=== PATIENT | female | born 1940 | race Caucasian/White ===

== ENCOUNTER 2016-10-01 17:08 | Inpatient (IN) | payer MEDICARE, OTHER ==
[2016-10-01 17:32] VITALS: BP 137/64; PULSE 80; RESP 16; TEMP 98.4; O2SAT 97
[2016-10-01 19:43] LABS: BACTERIA, URINE RARE /hpf; BLOOD, URINE TRACE (NEG); GLUCOSE,URINE 300 mg/dL (NEG); HYALINE CAST, URINE 3 /lpf (RARE); KETONE, URINE NEG (NEG); MUCUS URINE FEW /lpf (OCC); NITRITE,URINE NEG (NEG); PH, URINE 5.5 (5.0-8.5); URIC ACID CRYSTALS, URINE MOD /hpf; URINE COLOR YELLOW (YELLW/STRAW)
[2016-10-01 19:44] LABS: AUTOMATED NEUTROPHIL # 8.7 TH/MM3 (1.8-7.7); BASOPHIL % 0.4 % (0.0-2.0); EOSINOPHIL # 0.1 TH/MM3 (0-0.4); EOSINOPHIL % 1.2 % (0.0-4.0); HEMATOCRIT 34.4 % (35.0-46.0); LYMPH % 10.7 % (9.0-44.0); LYMPHOCYTE # 1.1 TH/MM3 (1.0-4.8); MEAN CELL VOLUME 85.4 FL (80.0-100.0); MEAN CORPUSCULAR HEMOGLOBIN 28.3 PG (27.0-34.0); MEAN CORPUSCULAR HGB CONC 33.2 % (32.0-36.0); MONO % 3.7 % (0.0-8.0); PLATELET COUNT 429 TH/MM3 (150-450); RED BLOOD COUNT 4.02 MIL/MM3 (4.00-5.30); RED CELL DISTRIBUTION WIDTH 15.2 % (11.6-17.2); WHITE BLOOD COUNT 10.4 TH/MM3 (4.0-11.0)
[2016-10-01 19:49] LABS: HEMO FLAGS AUTO DIFF
[2016-10-01 19:59] LABS: COMMENT (UR) CATH-CULTURE IND; CULTURE IF INDICATED CATH CULTURE IND
[2016-10-01 20:03] LABS: BICARBONATE 15.5 MEQ/L (21.0-32.0); POTASSIUM 5.1 MEQ/L (3.5-5.1)
[2016-10-01 20:09] LABS: CALCIUM-PROTEIN CORRECTED 8.5 MG/DL (8.5-10.1); TOTAL BILIRUBIN ADULT 0.1 MG/DL (0.2-1.0)
[2016-10-01 21:15] LABS: SCAN/DIFF AUTO DIFF CONFIRMED
--- NOTE | 2016-10-01 22:17 | PD ---
HPI Chief Complaint: General Weakness Time Seen by Provider: 21:39 Travel History International Travel<30 days: No Contact w/Intl Traveler<30days: No Traveled to known affect area: No History of Present Illness HPI 76-year-old female presents emergency Department with generalized weakness and fatigue since Thursday. Patient is currently a resident of [facility]. According to staff there the patient has been having a rapid decline in mental status and physical abilities since Thursday. She was diagnosed with C. difficile and is been placed on Flagyl then did receive a dose of Rocephin, followed by oral vancomycin. She had labs drawn 2 days ago which showed an acute kidney injury and this information was relayed to the physician, she had a midline catheter placed and was given some fluids through this but was ultimately decided to send her to [place] further workup. The patient is oriented to self only currently, she is very somnolent. According to nursing staff this is not her normal behavior. PFSH Past Medical History Anemia: Yes Diabetes: Yes Patient Takes Glucophage: No Hypertension: Yes Past Surgical History Surgical History: Unable to Obtain Social History Alcohol Use: No Tobacco Use: No Substance Use: No Allergies-Medications (Allergen,Severity, Reaction): Coded Allergies: No Known Allergies (Unverified , 10/01/16) Reported Meds & Prescriptions Reported Meds & Active Scripts Active Reported Salonpas Gel-Patch Hot (Capsaicin/Menthol) 1 Each Adh..patch [address] AT 6 AM OFF AT 2 PM Humalog Cartridge Inj (Insulin Lispro (Human) Inj) 300 Unit/3 Ml Soln 7 Units SQ ACHS SLIDING SCALE Zantac 75 (Ranitidine HCl) 75 Mg Tablet 75 Mg PO BID Zofran (Ondansetron HCl) 4 Mg Tab 4 Mg PO Q8HR PRN Acetaminophen 325 Mg Capsule 650 Mg PO Q6 PRN Vancomycin (Vancomycin HCl) 125 Mg Cap 125 Mg PO Q6HR 10 Days Probiotic (Saccharomyces Boulardii) 250 Mg Cap 250 Mg PO DAILY 14 Days Vitamin C (Ascorbic Acid) 250 Mg Tab 500 Mg PO BID Ferrous Sulfate DR (Ferrous Sulfate) 325 Mg Tabdr 1 Tab PO BID Levemir Inj (Insulin Detemir) 1,000 unit/ 10 ML Vial 25 Units SQ DAILY BED TIME' Do not mix with any other Insulin. Donepezil 10 Mg Tab 10 Mg PO HS Atorvastatin (Atorvastatin Calcium) 20 Mg Tab 20 Mg PO HS Levemir Inj (Insulin Detemir) 1,000 unit/ 10 ML Vial 16 Units SQ DAILY@0600 Do not mix with any other Insulin. Fenofibrate 145 Mg Tab 145 Mg PO DAILY Vitamin D3 (Cholecalciferol) 5,000 Unit Cap 5,000 Units PO DAILY Loratadine (Loratadine (Bulk)) 1 Pow Pow 10 Mg PO DAILY Plavix (Clopidogrel Bisulfate) 75 Mg Tab 75 Mg PO DAILY Aspirin 81 (Aspirin) 81 Mg Tabdr 81 Mg PO DAILY Review of Systems Except as stated in HPI: all other systems reviewed are Neg Physical Exam Narrative GENERAL: Well-developed well-nourished, no obvious distress, somnolent. SKIN: Focused skin assessment warm/dry. HEAD: Atraumatic. Normocephalic. EYES: Pupils equal and round. No scleral icterus. No injection or drainage. ENT: No nasal bleeding or discharge. Mucous membranes pink and moist. NECK: Trachea midline. No JVD. CARDIOVASCULAR: Regular rate and rhythm. No murmur appreciated. RESPIRATORY: No accessory muscle use. Clear to auscultation. Breath sounds equal bilaterally. GASTROINTESTINAL: Abdomen soft, non-tender, nondistended. Hepatic and splenic margins not palpable. MUSCULOSKELETAL: No obvious deformities. No clubbing. No cyanosis. No edema. NEUROLOGICAL: Awake and alert oriented to self only.. No obvious cranial nerve deficits. Follows commands in all 4 extremities, dozes off during examination. PSYCHIATRIC: Unable to assess. Data Data Last Documented VS Vital Signs Date Time Temp Pulse Resp B/P Pulse Ox O2 Delivery O2 Flow Rate FiO2 10/01/16 17:32 98.4 80 16 137/64 97 Orders Complete Blood Count With Diff (10/01/16 17:37) Comprehensive Metabolic Panel (10/01/16 17:37) Urinalysis - C+S If Indicated (10/01/16 17:37) Iv Access Insert/Monitor (10/01/16 17:37) Urine Culture (10/01/16 18:30) Admit Order (Ed Use Only) (10/01/16 ) Isolation 08,20 (10/01/16 22:29) Place In Observation (10/01/16 ) Vital Signs (Adult) Q4H (10/01/16 22:29) Activity Oob With Assistance (10/01/16 22:29) Music Coordinator / Telemetry .CONTINUOUS (10/01/16 22:29) Diet Heart Healthy (10/02/16 Breakfast) Sodium Chloride 0.9% Flush (Ns Flush) (10/01/16 22:30) Sodium Chloride 0.9% Flush (Ns Flush) (10/02/16 09:00) Basic Metabolic Panel (Bmp) (10/02/16 06:00) Complete Blood Count With Diff (10/02/16 06:00) Pt Request For Service (10/01/16 22:29) Case Management Consult (10/01/16 22:29) Naloxone Inj (Narcan Inj) (10/01/16 22:30) Vancomycin For Oral Use Only (Vancomycin (10/02/16 00:00) Labs Laboratory Tests Test 10/01/16 10/01/16 18:30 19:25 Urine Color YELLOW Urine Turbidity HAZY Urine pH 5.5 Urine Specific [place] 1.015 Urine Protein TRACE mg/dL Urine Glucose (UA) 300 mg/dL Urine Ketones NEG mg/dL Urine Occult Blood TRACE Urine Nitrite NEG Urine Bilirubin NEG Urine Urobilinogen LESS THAN 2.0 MG/DL Urine Leukocyte Esterase NEG Urine RBC 3 /hpf Urine WBC 2 /hpf Urine Uric Acid Crystals MOD /hpf Urine Bacteria RARE /hpf Urine Hyaline Casts 3 /lpf Urine Mucus FEW /lpf Microscopic Urinalysis Comment CATH-CULTURE IND White Blood Count 10.4 TH/MM3 Red Blood Count 4.02 MIL/MM3 Hemoglobin 11.4 GM/DL Hematocrit 34.4 % Mean Corpuscular Volume 85.4 FL Mean Corpuscular Hemoglobin 28.3 PG Mean Corpuscular Hemoglobin 33.2 % Concent Red Cell Distribution Width 15.2 % Platelet Count 429 TH/MM3 Mean Platelet Volume 7.5 FL Neutrophils (%) (Auto) 84.0 % Lymphocytes (%) (Auto) 10.7 % Monocytes (%) (Auto) 3.7 % Eosinophils (%) (Auto) 1.2 % Basophils (%) (Auto) 0.4 % Neutrophils # (Auto) 8.7 TH/MM3 Lymphocytes # (Auto) 1.1 TH/MM3 Monocytes # (Auto) 0.4 TH/MM3 Eosinophils # (Auto) 0.1 TH/MM3 Basophils # (Auto) 0.0 TH/MM3 CBC Comment AUTO DIFF Differential Comment AUTO DIFF CONFIRMED Sodium Level 140 MEQ/L Potassium Level 5.1 MEQ/L Chloride Level 116 MEQ/L Carbon Dioxide Level 15.5 MEQ/L Anion Gap 9 MEQ/L Blood Urea Nitrogen 69 MG/DL Creatinine 1.69 MG/DL Estimat Glomerular Filtration 29 ML/MIN Rate Random Glucose 263 MG/DL Calcium Level 7.4 MG/DL Protein Corrected Calcium 8.5 MG/DL Total Bilirubin 0.1 MG/DL Aspartate Amino Transf 26 U/L (AST/SGOT) Alanine Aminotransferase 13 U/L (ALT/SGPT) Alkaline Phosphatase 45 U/L Total Protein 5.1 GM/DL Albumin 1.8 GM/DL [facility] Medical Decision Making Medical Screen Exam Complete: Yes Emergency Medical Condition: Yes Differential Diagnosis Dehydration, C. difficile, acute kidney injury, acidosis, uremia. Narrative Course Patient 76-year-old female roomed in the emergency department, she appears to be somewhat dehydrated, conversations with staff at the halfway shows a general decline in mental status and physical activity over the past few days. She did have labs 2 days ago which showed acute kidney injury with uremia and axis of 100, somewhat better today with a BUNs of 69 and creatinine of 1.7. She certainly appears dehydrated. Unclear what her baseline kidney function is. Also unclear what her baseline mental status is. I think prudence would suggest an observation status for the time being for hydration and reassessment. Patient was discussed with Dr. Guillory who is agreeable. Neurologically she follows commands in all 4 extremities. Diagnosis Primary Impression: CHERRI (acute kidney injury) Additional Impressions: Acidosis Dehydration Admitting Information Admitting Physician Requests: Observation Condition: Stable Arjun Phelps MD Oct 01, 2016 22:16
[2016-10-01] MEDS ORDERED: FENO145T2 PO (22:19)
[2016-10-01] MEDS ORDERED: LORA1POW7 PO (22:19)
[2016-10-01] MEDS ORDERED: FERR325T2 PO (22:19)
[2016-10-01] MEDS ORDERED: ASPI-110 PO (22:19)
[2016-10-01] MEDS ORDERED: CAPS1ADH TOPICAL (22:19)
[2016-10-01] MEDS ORDERED: HUMA100I2 SQ (22:19)
[2016-10-01] MEDS ORDERED: PLAV75TA29 PO (22:19)
[2016-10-01] MEDS ORDERED: ZOFR4TAB PO (22:19)
[2016-10-01] MEDS ORDERED: SACC1CAP3 PO (22:19)
[2016-10-01] MEDS ORDERED: VANC125C3 PO (22:19)
[2016-10-01] MEDS ORDERED: VITA250T3 PO (22:19)
[2016-10-01] MEDS ORDERED: CHOL5000 PO (22:19)
[2016-10-01] MEDS ORDERED: ATOR20TA15 PO (22:19)
[2016-10-01] MEDS ORDERED: ZANTTAB11 PO (22:19)
[2016-10-01] MEDS ORDERED: LEVEMIR SQ ×2 (22:19)
[2016-10-01] MEDS ORDERED: ACET325C PO (22:19)
[2016-10-01] MEDS ORDERED: DONE10TA7 PO (22:19)
[2016-10-01] MEDS ORDERED: NALOXONE HCL 0.4 MG/ML AMP IV PRN (22:30)
[2016-10-01] MEDS ORDERED: SODIUM CHLORIDE 0.9% FLUSH 10 ML FLUSH IV FLUSH PRN (22:30)
[2016-10-02] VITALS (12 sets, daily range): BP systolic 107–151; BP diastolic 60–68; PULSE 64–87; RESP 15–18; TEMP 97.7–98.4; O2SAT 95–100
[2016-10-02] MEDS: VANCOMYCIN 500 MG VIAL (FOR ORAL USE ONLY) PO SCH ×5 (00:26→23:00)
[2016-10-02] MEDS ORDERED: DEXTROSE 50% IN WATER 50 ML VIAL(D50) IV PRN (08:00)
[2016-10-02] MEDS ORDERED: GLUCAGON 1 MG/ML VIAL OTHER PRN (08:00)
[2016-10-02 09:05] LABS: AUTOMATED NEUTROPHIL # 9.2 TH/MM3 (1.8-7.7); BASOPHIL # 0.1 TH/MM3 (0-0.2); BASOPHIL % 0.5 % (0.0-2.0); EOSINOPHIL # 0.2 TH/MM3 (0-0.4); EOSINOPHIL % 1.7 % (0.0-4.0); HEMATOCRIT 38.1 % (35.0-46.0); LYMPH % 15.3 % (9.0-44.0); LYMPHOCYTE # 1.8 TH/MM3 (1.0-4.8); MEAN CELL VOLUME 87.7 FL (80.0-100.0); MEAN CORPUSCULAR HEMOGLOBIN 27.6 PG (27.0-34.0); MEAN CORPUSCULAR HGB CONC 31.5 % (32.0-36.0); MONO % 4.8 % (0.0-8.0); NEUT % 77.7 % (16.0-70.0); PLATELET COUNT 412 TH/MM3 (150-450); RED BLOOD COUNT 4.35 MIL/MM3 (4.00-5.30); RED CELL DISTRIBUTION WIDTH 15.5 % (11.6-17.2); WHITE BLOOD COUNT 11.8 TH/MM3 (4.0-11.0)
[2016-10-02 09:08] LABS: HEMO FLAGS AUTO DIFF
[2016-10-02] MEDS: SODIUM CHLOR 0.9% 1000 ML INJ 1,000 ML IV SCH ×2 (09:18→20:17)
[2016-10-02] MEDS: SODIUM CHLORIDE 0.9% FLUSH 10 ML FLUSH IV FLUSH SCH ×2 (09:19→20:06)
[2016-10-02] MEDS: LACTOBACILLUS ACIDOPHILUS TAB PO SCH ×3 (09:19→18:10)
[2016-10-02] MEDS: FAMOTIDINE 20 MG TAB PO SCH ×2 (09:20→20:06)
[2016-10-02] MEDS: CLOPIDOGREL 75 MG TAB PO SCH (09:20)
[2016-10-02 09:25] LABS: BICARBONATE 12.8 MEQ/L (21.0-32.0)
[2016-10-02 10:23] LABS: BANDS 4 % (0-6); BASOPHILS 1 % (0-2); EOSINOPHILS 2 % (0-4); METAMYELOCYTES 3 % (0-1); NEUTROPHIL # MANUAL DIFF 9.1 TH/MM3 (1.8-7.7); POLYS (SEG NEUTROPHILS) 70 % (16-70); WBC DIFF SAMPLE 100
[2016-10-02 10:24] LABS: PLATELET ESTIMATE SMEAR HIGH (NORMAL); PLATELET MORPHOLOGY NORMAL (NORMAL); SCAN/DIFF FINAL DIFF MANUAL
[2016-10-02] MEDS: INSULIN ASPART SUPPLEMENTAL SCALE SQ SCH ×3 (11:00→21:00)
--- NOTE | 2016-10-02 13:56 | HHI.HP ---
HPI Service [facility] Hospitalists Primary Care Physician Mark Fernandez MD Admission Diagnosis CHERRI, Dehydration, Cdif Diagnoses: Chief Complaint: Dehydration, C. difficile Travel History International Travel<30 Days: No Contact w/Intl Traveler <30 Da: No Traveled to Known Affected Are: No History of Present Illness Written by Leora Araujo, acting as scribe for Dr. Galicia on 10/02/16 at 13:43. Patient is a 76 year old female with primary medical history of diabetes, hypertension who came in from [facility] sent by the facility secondary to decline in mental status, dehydration, C. difficile. As per review of records, staff at [facility] sinus patient has been having rapid decline in mental status and physical abilities and Thursday. Diagnosed with C. difficile and was placed on Flagyl followed by an oral vancomycin, patient receive a dose of Rocephin. Her labs was drawn 2 days ago in the facility that showed acute kidney injury, midline catheter was placed and she was given some fluids but they have decided to send her to [place] for further evaluation. Patient seen and examined today. Reports she is doing well. Patient is only oriented to self, poor historian. As per staff, patient had "pudding consistency" stool today without any foul smell. Denies pain and discomfort. Denies SOB/ dyspnea. Denies chest pain, palpitations, headaches, dizziness. Denies fevers, chills, n/v/d. Denies dysuria. Review of Systems ROS Limitations: Poor Historian Past Family Social History Past Medical History Per review of records Anemia Diabetes Hypertension Past Surgical History Per physical examination Abdominal surgery - as per patient "I don't have appendix anymore" Right knee surgery Left AKA Reported Medications Reported Meds & Active Scripts Active Reported Salonpas Gel-Patch Hot (Capsaicin/Menthol) 1 Each Adh..patch [address] AT 6 AM OFF AT 2 PM Humalog Cartridge Inj (Insulin Lispro (Human) Inj) 300 Unit/3 Ml Soln 7 Units SQ ACHS SLIDING SCALE Zantac 75 (Ranitidine HCl) 75 Mg Tablet 75 Mg PO BID Zofran (Ondansetron HCl) 4 Mg Tab 4 Mg PO Q8HR PRN Acetaminophen 325 Mg Capsule 650 Mg PO Q6 PRN Vancomycin (Vancomycin HCl) 125 Mg Cap 125 Mg PO Q6HR 10 Days Probiotic (Saccharomyces Boulardii) 250 Mg Cap 250 Mg PO DAILY 14 Days Vitamin C (Ascorbic Acid) 250 Mg Tab 500 Mg PO BID Ferrous Sulfate DR (Ferrous Sulfate) 325 Mg Tabdr 1 Tab PO BID Levemir Inj (Insulin Detemir) 1,000 unit/ 10 ML Vial 25 Units SQ DAILY BED TIME' Do not mix with any other Insulin. Donepezil 10 Mg Tab 10 Mg PO HS Atorvastatin (Atorvastatin Calcium) 20 Mg Tab 20 Mg PO HS Levemir Inj (Insulin Detemir) 1,000 unit/ 10 ML Vial 16 Units SQ DAILY@0600 Do not mix with any other Insulin. Fenofibrate 145 Mg Tab 145 Mg PO DAILY Vitamin D3 (Cholecalciferol) 5,000 Unit Cap 5,000 Units PO DAILY Loratadine (Loratadine (Bulk)) 1 Pow Pow 10 Mg PO DAILY Plavix (Clopidogrel Bisulfate) 75 Mg Tab 75 Mg PO DAILY Aspirin 81 (Aspirin) 81 Mg Tabdr 81 Mg PO DAILY Allergies: Coded Allergies: No Known Allergies (Unverified , 10/01/16) Active Ordered Medications Current Medications Medications (Trade) Dose Ordered Sig/Beth Route Start Time Stop Time Status Last Admin (NS Flush) 2 ml UNSCH PRN IV FLUSH 10/01/16 22:30 (NS Flush) 2 ml BID IV FLUSH 10/02/16 09:00 10/02/16 09:19 (Narcan Inj) 0.4 mg UNSCH PRN IV 10/01/16 22:30 (VANCOMYCIN for oral use only) 125 mg Q6HR PO 10/02/16 00:00 10/02/16 12:52 Lactobacillus Acidophilus 1 tab 1 tab TID PO 10/02/16 09:00 10/02/16 12:52 (NS 1000 ml Inj) 1,000 ml @ 84 mls/hr [id number] IV 10/02/16 08:00 10/02/16 09:18 (Plavix) 75 mg DAILY PO 10/02/16 09:00 10/02/16 09:20 (Aricept) 10 mg HS PO 10/02/16 21:00 (Levemir Inj) 25 units HS SQ 10/02/16 21:00 (Pepcid) 10 mg BID PO 10/02/16 09:00 10/02/16 09:20 (D50w (Vial) Inj) 50 ml UNSCH PRN IV 10/02/16 08:00 (Glucagon Inj) 1 mg UNSCH PRN OTHER 10/02/16 08:00 Family History Unable to obtain Social History Denies alcohol use denies tobacco use denies illicit drug use Physical Exam Vital Signs Vital Signs Date Time Temp Pulse Resp B/P Pulse Ox O2 Delivery O2 Flow Rate FiO2 10/02/16 11:27 97.8 83 15 140/64 100 10/02/16 08:01 97.9 78 16 133/63 99 10/02/16 08:00 75 10/02/16 02:04 97.7 64 18 107/68 97 10/02/16 01:23 80 10/02/16 00:42 98.4 74 18 131/60 95 10/02/16 00:21 87 18 150/67 100 10/01/16 17:32 98.4 80 16 137/64 97 Physical Exam GENERAL: This is a well-nourished, well-developed patient, in no apparent distress. SKIN: No rashes, ecchymoses or lesions. Cool and dry. HEAD: Atraumatic. Normocephalic. No temporal or scalp tenderness. EYES: Pupils equal round and reactive. Extraocular motions intact. No scleral icterus. No injection or drainage. ENT: Nose without bleeding. Throat without erythema. Uvula midline. Airway patent. Edentulous NECK: Trachea midline. No JVD or lymphadenopathy. CARDIOVASCULAR: Regular rate and rhythm without murmurs, gallops, or rubs. RESPIRATORY: Clear to auscultation. Breath sounds equal bilaterally. No wheezes , rales, or rhonchi. GASTROINTESTINAL: Abdomen soft, obese, non-tender, nondistended. Bowel sounds active 4. MUSCULOSKELETAL: Extremities without clubbing, cyanosis, or edema. Left AKA. NEUROLOGICAL: Awake and alert. Oriented to self. Motor and sensory grossly within normal limits. Normal speech. Laboratory Laboratory Tests Test 10/01/16 10/01/16 10/02/16 18:30 19:25 08:35 Urine Color YELLOW Urine Turbidity HAZY Urine pH 5.5 Urine Specific [place] 1.015 Urine Protein TRACE Urine Glucose (UA) 300 Urine Ketones NEG Urine Occult Blood TRACE Urine Nitrite NEG Urine Bilirubin NEG Urine Urobilinogen LESS THAN 2.0 Urine Leukocyte Esterase NEG Urine RBC 3 Urine WBC 2 Urine Uric Acid Crystals MOD Urine Bacteria RARE Urine Hyaline Casts 3 Urine Mucus FEW Microscopic Urinalysis Comment CATH-CULTURE IND White Blood Count 10.4 11.8 Red Blood Count 4.02 4.35 Hemoglobin 11.4 12.0 Hematocrit 34.4 38.1 Mean Corpuscular Volume 85.4 87.7 Mean Corpuscular Hemoglobin 28.3 27.6 Mean Corpuscular Hemoglobin 33.2 31.5 Concent Red Cell Distribution Width 15.2 15.5 Platelet Count 429 412 Mean Platelet Volume 7.5 7.3 Neutrophils (%) (Auto) 84.0 77.7 Lymphocytes (%) (Auto) 10.7 15.3 Monocytes (%) (Auto) 3.7 4.8 Eosinophils (%) (Auto) 1.2 1.7 Basophils (%) (Auto) 0.4 0.5 Neutrophils # (Auto) 8.7 9.2 Lymphocytes # (Auto) 1.1 1.8 Monocytes # (Auto) 0.4 0.6 Eosinophils # (Auto) 0.1 0.2 Basophils # (Auto) 0.0 0.1 CBC Comment AUTO DIFF AUTO DIFF Differential Comment AUTO DIFF FINAL DIFF CONFIRMED MANUAL Sodium Level 140 142 Potassium Level 5.1 5.0 Chloride Level 116 121 Carbon Dioxide Level 15.5 12.8 Anion Gap 9 8 Blood Urea Nitrogen 69 60 Creatinine 1.69 1.31 Estimat Glomerular Filtration 29 39 Rate Random Glucose 263 184 Calcium Level 7.4 7.7 Protein Corrected Calcium 8.5 Total Bilirubin 0.1 Aspartate Amino Transf 26 (AST/SGOT) Alanine Aminotransferase 13 (ALT/SGPT) Alkaline Phosphatase 45 Total Protein 5.1 Albumin 1.8 Differential Total Cells 100 Counted Neutrophils % (Manual) 70 Band Neutrophils % 4 Lymphocytes % 17 Monocytes % 3 Eosinophils % 2 Basophils % 1 Neutrophils # (Manual) 9.1 Metamyelocytes 3 Platelet Estimate HIGH Platelet Morphology Comment NORMAL Date/Time Procedure Status Source Growth 10/01/16 18:30 Urine Culture - Preliminary Resulted Urine Catheterized Urine NO GROWTH IN 24 HOURS. Result Diagram: 10/02/16 0835 10/02/16 0835 Assessment and Plan Problem List: (1) CHERRI (acute kidney injury) ICD Code: N17.9 Status: Acute (2) Acidosis ICD Code: E87.2 Status: Acute (3) Dehydration ICD Code: E86.0 Status: Acute (4) C. difficile colitis ICD Code: A04.7 Status: Acute Assessment and Plan Patient is a 76 year old female with primary medical history of diabetes, hypertension who came in from [facility] sent by the facility secondary to decline in mental status, dehydration, C. difficile. C. difficile, colitis - Continue Lactinex, vancomycin 125 every 6 hours - May increase vancomycin if the patient continues to have loose stools. Reported by staff that the stool is pudding consistency. - IV fluids for hydration, encourage patient for by mouth intake - Continue contact isolation DM2 - Continue home medication Levemir 25 units daily at bedtime, insulin sliding scale - Monitor Accu-Cheks. Monitor for hypoglycemia. Adjust meds when necessary Acute kidney injury, on possible chronic kidney disease - Patient came in with creatinine of 3.01 --> 1.69 -->1.31 - IV fluids for hydration - Encourage by mouth intake - Avoid nephrotoxin HTN, controlled - Not on any medications right now, maintaining BP DVT prop heparin This note was transcribed by scribe [Leora Araujo]. I, Dr. Miya Galicia personally performed the history, physical exam, and medical decision making; and confirmed the accuracy of the information in the transcribed note. Authenticated by Dr. Miya Galicia on 10/02/16 at 1350. Code Status Full code Discussed Condition With Discussed with patient, nursing Leora Velasquez Oct 02, 2016 13:55 Miya Galicia MD Oct 02, 2016 16:08
[2016-10-02] MEDS: DONEPEZIL HCL 5 MG TAB PO SCH ×2 (20:07→20:21)
[2016-10-02] MEDS: MICONAZOLE NITRATE 2% OINT 5 OZ TUBE TOPICAL SCH (21:00)
[2016-10-02] MEDS: INSULIN DETEMIR 100 UNITS/ML VIAL SQ SCH (21:18)
[2016-10-03] VITALS (10 sets, daily range): BP systolic 125–157; BP diastolic 58–72; PULSE 60–80; RESP 15–18; TEMP 97.6–98.2; O2SAT 99–100
[2016-10-03] MEDS: VANCOMYCIN 500 MG VIAL (FOR ORAL USE ONLY) PO SCH ×3 (05:56→18:34)
[2016-10-03] MEDS: INSULIN ASPART SUPPLEMENTAL SCALE SQ SCH ×4 (06:00→21:00)
[2016-10-03 07:08] LABS: AUTOMATED NEUTROPHIL # 6.6 TH/MM3 (1.8-7.7); BASOPHIL # 0.1 TH/MM3 (0-0.2); BASOPHIL % 0.6 % (0.0-2.0); EOSINOPHIL # 0.2 TH/MM3 (0-0.4); EOSINOPHIL % 1.8 % (0.0-4.0); HEMATOCRIT 33.5 % (35.0-46.0); LYMPHOCYTE # 1.5 TH/MM3 (1.0-4.8); MEAN CELL VOLUME 86.5 FL (80.0-100.0); MEAN CORPUSCULAR HEMOGLOBIN 27.5 PG (27.0-34.0); MEAN CORPUSCULAR HGB CONC 31.8 % (32.0-36.0); MONO % 4.2 % (0.0-8.0); NEUT % 76.4 % (16.0-70.0); PLATELET COUNT 369 TH/MM3 (150-450); RED BLOOD COUNT 3.87 MIL/MM3 (4.00-5.30); RED CELL DISTRIBUTION WIDTH 15.1 % (11.6-17.2); WHITE BLOOD COUNT 8.6 TH/MM3 (4.0-11.0)
[2016-10-03 07:18] LABS: BICARBONATE 18.1 MEQ/L (21.0-32.0); POTASSIUM 4.4 MEQ/L (3.5-5.1)
[2016-10-03 07:23] LABS: HEMO FLAGS AUTO DIFF
[2016-10-03 07:57] LABS: CALCIUM-PROTEIN CORRECTED 8.5 MG/DL (8.5-10.1)
[2016-10-03 08:04] LABS: BANDS 17 % (0-6); METAMYELOCYTES 1 % (0-1); MYELOCYTES 1 % (0-0); NEUTROPHIL # MANUAL DIFF 7.2 TH/MM3 (1.8-7.7); POLYS (SEG NEUTROPHILS) 65 % (16-70); WBC DIFF SAMPLE 100
[2016-10-03 08:05] LABS: SCAN/DIFF FINAL DIFF MANUAL
[2016-10-03] MEDS: SODIUM CHLOR 0.9% 1000 ML INJ 1,000 ML IV SCH ×2 (08:51→21:39)
[2016-10-03] MEDS: SODIUM CHLORIDE 0.9% FLUSH 10 ML FLUSH IV FLUSH SCH ×2 (09:00→21:00)
[2016-10-03] MEDS: LACTOBACILLUS ACIDOPHILUS TAB PO SCH ×3 (09:14→18:34)
[2016-10-03] MEDS: CLOPIDOGREL 75 MG TAB PO SCH (09:14)
[2016-10-03] MEDS: FAMOTIDINE 20 MG TAB PO SCH ×2 (09:15→21:34)
[2016-10-03] MEDS: MICONAZOLE NITRATE 2% OINT 5 OZ TUBE TOPICAL SCH ×2 (09:15→21:38)
--- NOTE | 2016-10-03 09:56 | HHI.PR ---
Subjective Remarks Follow up for c.difficile colitis, CHERRI. The patient is awake but drowsy this morning. She reports continued episodes of diarrhea overnight. Denies any abdominal pain, nausea or vomiting. She states she doesn't really have an appetite. Denies fevers/chills. She admits to feeling weak. She has no other medical complaints at this time. Objective Vitals Vital Signs Date Time Temp Pulse Resp B/P Pulse Ox O2 Delivery O2 Flow Rate FiO2 10/03/16 08:24 97.9 80 15 145/72 100 10/03/16 03:51 71 10/03/16 03:45 98.2 74 17 125/58 99 10/03/16 00:50 72 10/02/16 23:31 98.0 72 18 151/66 99 10/02/16 22:08 74 10/02/16 20:18 98.2 83 17 147/65 100 10/02/16 15:37 97.9 76 16 136/67 98 10/02/16 12:00 78 10/02/16 11:27 97.8 83 15 140/64 100 I/O 10/02/16 10/02/16 10/02/16 10/03/16 10/03/16 10/03/16 07:00 15:00 23:00 07:00 15:00 23:00 Intake Total 200 ml 1240 ml Output Total 600 ml 575 ml 800 ml Balance -400 ml 665 ml -800 ml Intake Oral 200 ml 240 ml IV Total 1000 ml Output Urine Total 550 ml 575 ml 800 ml Stool Total 50 ml # Bowel Movements 1 4 Result Diagram: 10/03/16 0616 10/03/16 0616 Objective Remarks GENERAL: Well-nourished, well-developed elderly female patient in [facility]. SKIN: Warm and dry. No rash. HEENT: Normocephalic. Atraumatic. Pupils equal and round. Mucous membranes pink and moist. NECK: Supple. Trachea midline. CARDIOVASCULAR: Regular rate and rhythm. S1, S2 noted. No murmur appreciated. RESPIRATORY: No accessory muscle use. Clear to auscultation. Breath sounds equal bilaterally. GASTROINTESTINAL: Abdomen soft, non-tender, nondistended. Normoactive bowel sounds x4. MUSCULOSKELETAL: No obvious deformities. Extremities without clubbing, cyanosis , or edema. NEUROLOGICAL: Awake and alert. No obvious cranial nerve deficits. Motor grossly within normal limits. Normal speech. Medications and IVs Current Medications Medications (Trade) Dose Ordered Sig/Beth Route Start Time Stop Time Status Last Admin (NS Flush) 2 ml UNSCH PRN IV FLUSH 10/01/16 22:30 (NS Flush) 2 ml BID IV FLUSH 10/02/16 09:00 10/02/16 09:19 (Narcan Inj) 0.4 mg UNSCH PRN IV 10/01/16 22:30 Lactobacillus Acidophilus 1 tab 1 tab TID PO 10/02/16 09:00 10/03/16 09:14 (NS 1000 ml Inj) 1,000 ml @ 84 mls/hr [id number] IV 10/02/16 08:00 10/03/16 08:51 (Plavix) 75 mg DAILY PO 10/02/16 09:00 10/03/16 09:14 (Aricept) 10 mg HS PO 10/02/16 21:00 10/02/16 20:21 (Levemir Inj) 25 units HS SQ 10/02/16 21:00 10/02/16 21:18 (Pepcid) 10 mg BID PO 10/02/16 09:00 10/03/16 09:15 (D50w (Vial) Inj) 50 ml UNSCH PRN IV 10/02/16 08:00 (Glucagon Inj) 1 mg UNSCH PRN OTHER 10/02/16 08:00 (VANCOMYCIN for oral use only) 250 mg Q6HR PO 10/02/16 18:00 10/03/16 05:56 (Aloe Hugo Antifungal 2% Oint) 1 applic BID TOPICAL 10/02/16 21:00 10/03/16 09:15 A/P Problem List: (1) CHERRI (acute kidney injury) ICD Code: N17.9 Status: Acute (2) Acidosis ICD Code: E87.2 Status: Acute (3) Dehydration ICD Code: E86.0 Status: Acute (4) C. difficile colitis ICD Code: A04.7 Status: Acute Assessment and Plan 76-year-old female with history of diabetes, hypertension from [facility] sent by the facility secondary to decline in mental status, dehydration, C. difficile. C. difficile Colitis: - Continue Lactinex and vancomycin 250mg q6h [id number] - IV fluids for hydration, encourage oral intake - Contact isolation - Monitor BMs, still with ongoing diarrhea DM2: chronic, monitor closely with decreased oral intake - Continue home medication Levemir 25 units at bedtime, insulin sliding scale - Monitor Accu-Cheks. - Monitor for hypoglycemia. Acute kidney injury: suspect secondary to dehydration with ongoing diarrhea. Cr 3.01 on 09/30/16. - Given IV fluids for hydration - Encourage by mouth intake - Avoid nephrotoxins - Trended creatinine of 3.01 --> 1.69 -->1.31 --> 0.94 HTN, controlled - Not on any antihypertensives, BP fairly well controlled. DVT Prophylaxis: heparin Discharge Planning Discharge pending further clinical improvement. Likely discharge tomorrow. Stefanie Solis PA-C Oct 03, 2016 9:56 am
[2016-10-03] MEDS: INSULIN DETEMIR 100 UNITS/ML VIAL SQ SCH (21:00)
[2016-10-03] MEDS: DONEPEZIL HCL 5 MG TAB PO SCH (21:34)
[2016-10-04] VITALS (11 sets, daily range): BP systolic 132–154; BP diastolic 58–76; PULSE 55–80; RESP 16–18; TEMP 96.7–98.6; O2SAT 92–100
[2016-10-04] MEDS: VANCOMYCIN 500 MG VIAL (FOR ORAL USE ONLY) PO SCH ×5 (00:48→22:13)
[2016-10-04] MEDS: INSULIN ASPART SUPPLEMENTAL SCALE SQ SCH ×4 (06:12→21:00)
[2016-10-04 06:33] LABS: BICARBONATE 18.3 MEQ/L (21.0-32.0)
[2016-10-04] MEDS: SODIUM CHLOR 0.9% 1000 ML INJ 1,000 ML IV SCH ×2 (07:53→21:55)
[2016-10-04] MEDS: SODIUM CHLORIDE 0.9% FLUSH 10 ML FLUSH IV FLUSH SCH ×2 (09:00→21:55)
[2016-10-04] MEDS: FAMOTIDINE 20 MG TAB PO SCH ×2 (09:27→21:55)
[2016-10-04] MEDS: LACTOBACILLUS ACIDOPHILUS TAB PO SCH ×3 (09:27→17:24)
[2016-10-04] MEDS: CLOPIDOGREL 75 MG TAB PO SCH (09:27)
[2016-10-04] MEDS: MICONAZOLE NITRATE 2% OINT 5 OZ TUBE TOPICAL SCH ×2 (09:28→21:00)
--- NOTE | 2016-10-04 10:51 | HHI.PR ---
Subjective Remarks Follow up for c.difficile colitis, CHERRI. The patient is pleasantly demented, oriented to self only, has no medical complaints. Denies any abdominal pain, nausea/vomiting. She has not had any diarrhea episodes this morning that she can recall, however has had 5 episodes overnight. She says she is eating. No documented fevers. Objective Vitals Vital Signs Date Time Temp Pulse Resp B/P Pulse Ox O2 Delivery O2 Flow Rate FiO2 10/04/16 08:32 97.8 70 16 154/75 100 10/04/16 04:33 63 10/04/16 03:24 97.9 76 16 147/63 99 10/03/16 22:54 98.1 71 18 134/62 99 10/03/16 20:55 98.1 76 17 135/59 100 10/03/16 20:30 70 10/03/16 15:47 98.0 73 16 150/67 100 10/03/16 11:54 97.6 77 17 157/69 100 I/O 10/03/16 10/03/16 10/03/16 10/04/16 10/04/16 10/04/16 07:00 15:00 23:00 07:00 15:00 23:00 Intake Total 1240 ml Output Total 800 ml 1100 ml Balance -800 ml 140 ml Intake Oral 240 ml IV Total 1000 ml Output Urine Total 800 ml 1100 ml # Bowel Movements 4 5 Result Diagram: 10/03/16 0616 10/04/16 0515 Objective Remarks GENERAL: Well-nourished, well-developed elderly female patient in [facility]. SKIN: Warm and dry. No rash. HEENT: Normocephalic. Atraumatic. Pupils equal and round. Mucous membranes pink and moist. NECK: Supple. Trachea midline. CARDIOVASCULAR: Regular rate and rhythm. S1, S2 noted. No murmur appreciated. RESPIRATORY: No accessory muscle use. Clear to auscultation. Breath sounds equal bilaterally. GASTROINTESTINAL: Abdomen soft, non-tender, nondistended. Normoactive bowel sounds x4. MUSCULOSKELETAL: Chronic Left AKA. Extremities without clubbing, cyanosis, or edema. NEUROLOGICAL: Awake and alert. No obvious cranial nerve deficits. Motor grossly within normal limits. Normal speech. Medications and IVs Current Medications Medications (Trade) Dose Ordered Sig/Beth Route Start Time Stop Time Status Last Admin (NS Flush) 2 ml UNSCH PRN IV FLUSH 10/01/16 22:30 (NS Flush) 2 ml BID IV FLUSH 10/02/16 09:00 10/02/16 09:19 (Narcan Inj) 0.4 mg UNSCH PRN IV 10/01/16 22:30 Lactobacillus Acidophilus 1 tab 1 tab TID PO 10/02/16 09:00 10/04/16 09:27 (NS 1000 ml Inj) 1,000 ml @ 84 mls/hr [id number] IV 10/02/16 08:00 10/04/16 07:53 (Plavix) 75 mg DAILY PO 10/02/16 09:00 10/04/16 09:27 (Aricept) 10 mg HS PO 10/02/16 21:00 10/03/16 21:34 (Levemir Inj) 25 units HS SQ 10/02/16 21:00 10/02/16 21:18 (Pepcid) 10 mg BID PO 10/02/16 09:00 10/04/16 09:27 (D50w (Vial) Inj) 50 ml UNSCH PRN IV 10/02/16 08:00 (Glucagon Inj) 1 mg UNSCH PRN OTHER 10/02/16 08:00 (VANCOMYCIN for oral use only) 250 mg Q6HR PO 10/02/16 18:00 10/04/16 05:35 (Aloe [place] Antifungal 2% Oint) 1 applic BID TOPICAL 10/02/16 21:00 10/04/16 09:28 A/P Problem List: (1) CHERRI (acute kidney injury) ICD Code: N17.9 Status: Acute (2) Acidosis ICD Code: E87.2 Status: Acute (3) Dehydration ICD Code: E86.0 Status: Acute (4) C. difficile colitis ICD Code: A04.7 Status: Acute Assessment and Plan 76-year-old [facility] to decline in mental status, dehydration, C. difficile. C. difficile Colitis: - Continue Lactinex and vancomycin 250mg q6h [id number] - IV fluids for hydration, encourage oral intake - Contact isolation - Monitor BMs, still with ongoing diarrhea, 5 episodes overnight BRBPR: 10/04 RN reported streaks of bright red blood mixed with brown diarrhea stool - check stool Hemoccult - monitor for now, suspect secondary to irritation from ongoing diarrhea - consult gastroenterology if bleeding worsens or if hemoglobin drops DM2: chronic, monitor closely with decreased oral intake - Continue home medication Levemir 25 units at bedtime, insulin sliding scale - Monitor Accu-Cheks. - Monitor for hypoglycemia with ongoing diarrhea. Acute kidney injury: suspect secondary to dehydration with ongoing diarrhea. Cr 3.01 on 09/30/16. - Given IV fluids for hydration - Encourage by mouth intake - Avoid nephrotoxins - Trended creatinine of 3.01 --> 1.69 -->1.31 --> 0.94 --> 0.80 - Resolved. HTN, controlled - Not on any antihypertensives, BP fairly well controlled. DVT Prophylaxis: heparin Discharge Planning Discharge pending further clinical improvement. Still with ongoing diarrhea, 5 episodes overnight. Discussed with case management, will change to inpatient. Stefanie Solis PA-C Oct 04, 2016 10:51
[2016-10-04] MEDS: INSULIN DETEMIR 100 UNITS/ML VIAL SQ SCH (21:00)
[2016-10-04] MEDS: DONEPEZIL HCL 5 MG TAB PO SCH (21:55)
[2016-10-05] VITALS (7 sets, daily range): BP systolic 132–166; BP diastolic 60–84; PULSE 59–85; RESP 16–18; TEMP 96.1–98.8; O2SAT 94–98
[2016-10-05 05:48] LABS: HEMATOCRIT 29.9 % (35.0-46.0); PLATELET COUNT 233 TH/MM3 (150-450); RED BLOOD COUNT 3.51 MIL/MM3 (4.00-5.30); RED CELL DISTRIBUTION WIDTH 14.9 % (11.6-17.2); REVIEW FLAG FINAL; WHITE BLOOD COUNT 7.3 TH/MM3 (4.0-11.0)
[2016-10-05 06:02] LABS: BICARBONATE 15.5 MEQ/L (21.0-32.0); POTASSIUM 4.3 MEQ/L (3.5-5.1)
[2016-10-05 06:19] LABS: CALCIUM-PROTEIN CORRECTED 8.8 MG/DL (8.5-10.1)
[2016-10-05] MEDS: VANCOMYCIN 500 MG VIAL (FOR ORAL USE ONLY) PO SCH ×4 (06:23→21:25)
[2016-10-05] MEDS: INSULIN ASPART SUPPLEMENTAL SCALE SQ SCH ×4 (06:24→21:00)
[2016-10-05] MEDS: FAMOTIDINE 20 MG TAB PO SCH ×2 (07:51→21:24)
[2016-10-05] MEDS: LACTOBACILLUS ACIDOPHILUS TAB PO SCH ×3 (07:51→16:51)
[2016-10-05] MEDS: SODIUM CHLOR 0.9% 1000 ML INJ 1,000 ML IV SCH (07:52)
[2016-10-05] MEDS: CLOPIDOGREL 75 MG TAB PO SCH (07:52)
[2016-10-05] MEDS: MICONAZOLE NITRATE 2% OINT 5 OZ TUBE TOPICAL SCH ×2 (07:52→21:25)
[2016-10-05] MEDS: SODIUM CHLORIDE 0.9% FLUSH 10 ML FLUSH IV FLUSH SCH ×2 (07:52→21:24)
--- NOTE | 2016-10-05 10:09 | HHI.PR ---
Subjective Remarks Patient reports she is feeling okay. Pleasantly confused. Discussed with RN. She had 3 bowel movements overnight but none this morning. She denies abdominal pain. She is eating well. Objective Vitals Vital Signs Date Time Temp Pulse Resp B/P Pulse Ox O2 Delivery O2 Flow Rate FiO2 10/05/16 08:00 85 10/05/16 08:00 98.3 72 17 139/60 97 10/05/16 04:00 97.0 59 16 132/63 98 10/05/16 00:00 96.1 73 18 133/62 98 10/04/16 21:54 74 10/04/16 21:52 96.7 70 18 152/68 98 10/04/16 20:16 98.4 74 16 151/76 92 10/04/16 16:16 63 10/04/16 16:00 98.2 76 18 136/58 97 10/04/16 14:07 55 10/04/16 11:43 98.6 80 18 132/67 97 I/O 10/04/16 10/04/16 10/04/16 10/05/16 10/05/16 10/05/16 07:00 15:00 23:00 07:00 15:00 23:00 Intake Total 1240 ml 1000 ml 610 ml Output Total 1100 ml 2125 ml 500 ml Balance 140 ml -1125 ml 110 ml Intake Oral 240 ml IV Total 1000 ml 1000 ml 610 ml Output Urine Total 1100 ml 2125 ml 500 ml # Bowel Movements 5 1 2 Result Diagram: 10/05/16 0530 10/05/16 0530 Objective Remarks GENERAL: Pleasantly demented female in no apparent distress. CARDIOVASCULAR: Normal rate and regular rhythm without murmurs, gallops, or rubs. RESPIRATORY: Good respiratory efforts. Breath sounds equal and clear to auscultation bilaterally. GASTROINTESTINAL: Abdomen soft, non-tender, non-distended. Normal active bowel sounds MUSCULOSKELETAL: Extremities without cyanosis, or edema. NEURO: Alert & Oriented to self. Moves all ext x4 PSYCH: Calm. A/P Problem List: (1) CHERRI (acute kidney injury) ICD Code: N17.9 Status: Acute (2) Acidosis ICD Code: E87.2 Status: Acute (3) Dehydration ICD Code: E86.0 Status: Acute (4) C. difficile colitis ICD Code: A04.7 Status: Acute Assessment and Plan 76-year-[facility] in [facility] status, dehydration, C. difficile. C. difficile Colitis: - Continue Lactinex and vancomycin 250mg q6h [id number]. Still had 3 episodes of diarrhea overnight. -Stop IV fluid today. Continue to Encourage oral intake - Contact isolation - Monitor BMs, if continue to decrease in frequency, can consider discharging back to SNF in the next 1-2 days. BRBPR: 10/04 RN reported streaks of bright red blood mixed with brown diarrhea stool - check stool Hemoccult - monitor for now, suspect secondary to irritation from ongoing diarrhea - consult gastroenterology if bleeding worsens or if hemoglobin drops DM2: chronic, monitor closely with decreased oral intake - Continue home medication Levemir 25 units at bedtime, insulin sliding scale - Monitor Accu-Cheks. - Monitor for hypoglycemia with ongoing diarrhea. Acute kidney injury: suspect secondary to dehydration with ongoing diarrhea. Cr 3.01 on 09/30/16. -Resolved with IV hydration - Encourage by mouth intake - Avoid nephrotoxins HTN, controlled - Not on any antihypertensives, BP fairly well controlled. DVT Prophylaxis: heparin Discharge Planning Continue to monitor diarrhea. Possible discharge in the next 1-2 days if continues to improve. Miya Galicia MD Oct 05, 2016 10:09
[2016-10-05] MEDS: INSULIN DETEMIR 100 UNITS/ML VIAL SQ SCH (21:00)
[2016-10-05] MEDS: DONEPEZIL HCL 5 MG TAB PO SCH (21:24)
[2016-10-06 04:13] VITALS: BP 168/72; PULSE 71; RESP 18; TEMP 96.3; O2SAT 97
[2016-10-06] MEDS: VANCOMYCIN 500 MG VIAL (FOR ORAL USE ONLY) PO SCH ×2 (05:41→12:24)
[2016-10-06] MEDS: INSULIN ASPART SUPPLEMENTAL SCALE SQ SCH ×3 (06:25→16:58)
[2016-10-06 07:10] LABS: BICARBONATE 21.7 MEQ/L (21.0-32.0); POTASSIUM 3.9 MEQ/L (3.5-5.1)
[2016-10-06 08:00] VITALS: BP 147/66; PULSE 71; RESP 13; TEMP 96.1; O2SAT 97
[2016-10-06] MEDS: LACTOBACILLUS ACIDOPHILUS TAB PO SCH ×2 (08:06→12:24)
[2016-10-06] MEDS: CLOPIDOGREL 75 MG TAB PO SCH (08:06)
[2016-10-06] MEDS: FAMOTIDINE 20 MG TAB PO SCH (08:06)
[2016-10-06] MEDS: SODIUM CHLORIDE 0.9% FLUSH 10 ML FLUSH IV FLUSH SCH (08:07)
[2016-10-06] MEDS: MICONAZOLE NITRATE 2% OINT 5 OZ TUBE TOPICAL SCH (08:16)
[2016-10-06 12:00] VITALS: BP 135/61; PULSE 73; RESP 16; TEMP 97; O2SAT 98
[2016-10-06] MEDS ORDERED: VANC500I3 PO (12:29)
--- NOTE | 2016-10-06 12:31 | HHI.PR ---
Subjective Remarks No acute complaints. Discussed with nursing. Objective Vitals Vital Signs Date Time Temp Pulse Resp B/P Pulse Ox O2 Delivery O2 Flow Rate FiO2 10/06/16 08:00 96.1 71 13 147/66 97 10/06/16 04:13 96.3 71 18 168/72 97 10/05/16 23:06 98.7 76 18 166/72 94 10/05/16 20:00 79 10/05/16 20:00 98.8 71 18 161/84 97 10/05/16 16:00 97.4 81 17 135/72 96 I/O 10/05/16 10/05/16 10/05/16 10/06/16 10/06/16 10/06/16 07:00 15:00 23:00 07:00 15:00 23:00 Intake Total 610 ml 770 ml 460 ml 240 ml Output Total 500 ml 325 ml 1225 ml 325 ml Balance 110 ml 445 ml -765 ml -85 ml Intake Oral 250 ml 460 ml 240 ml IV Total 610 ml 520 ml Output Urine Total 500 ml 325 ml 1225 ml 325 ml # Bowel Movements 2 2 0 1 1 Result Diagram: 10/05/16 0530 10/06/16 0602 Objective Remarks GENERAL: Pleasantly demented female in no apparent distress. CARDIOVASCULAR: Normal rate and regular rhythm without murmurs, gallops, or rubs. RESPIRATORY: Good respiratory efforts. Breath sounds equal and clear to auscultation bilaterally. GASTROINTESTINAL: Abdomen soft, non-tender, non-distended. Normal active bowel sounds MUSCULOSKELETAL: Extremities without cyanosis, or edema. NEURO: Alert & Oriented to self. Moves all ext x4 PSYCH: Calm. Medications and IVs Current Medications Medications (Trade) Dose Ordered Sig/Beth Route Start Time Stop Time Status Last Admin (NS Flush) 2 ml UNSCH PRN IV FLUSH 10/01/16 22:30 (NS Flush) 2 ml BID IV FLUSH 10/02/16 09:00 10/06/16 08:07 (Narcan Inj) 0.4 mg UNSCH PRN IV 10/01/16 22:30 (Lactinex) 1 tab TID PO 10/02/16 09:00 10/06/16 12:24 (Plavix) 75 mg DAILY PO 10/02/16 09:00 10/06/16 08:06 (Aricept) 10 mg HS PO 10/02/16 21:00 10/05/16 21:24 (Levemir Inj) 25 units HS SQ 10/02/16 21:00 10/02/16 21:18 (Pepcid) 10 mg BID PO 10/02/16 09:00 10/06/16 08:06 (D50w (Vial) Inj) 50 ml UNSCH PRN IV 10/02/16 08:00 (Glucagon Inj) 1 mg UNSCH PRN OTHER 10/02/16 08:00 (VANCOMYCIN for oral use only) 250 mg Q6HR PO 10/02/16 18:00 10/06/16 12:24 (Aloe [place] Antifungal 2% Oint) 1 applic BID TOPICAL 10/02/16 21:00 10/06/16 08:16 A/P Problem List: (1) CHERRI (acute kidney injury) ICD Code: N17.9 Status: Acute (2) Acidosis ICD Code: E87.2 Status: Acute (3) Dehydration ICD Code: E86.0 Status: Acute (4) C. difficile colitis ICD Code: A04.7 Status: Acute Assessment and Plan C. difficile Colitis: - Continue Lactinex and vancomycin 250mg q6h [id number]. -Stop IV fluid. Continue to Encourage oral intake - Contact isolation - Monitor BMs, if continue to decrease in frequency, can consider discharging back to SNF in the next 1-2 days. Improved. BRBPR: 10/04 RN reported streaks of bright red blood mixed with brown diarrhea stool - check stool Hemoccult - monitor for now, suspect secondary to irritation from ongoing diarrhea - GI follow-up as an outpt. DM2: chronic, monitor closely with decreased oral intake - Continue home medication Levemir 25 units at bedtime, insulin sliding scale - Monitor Accu-Cheks. - Monitor for hypoglycemia with ongoing diarrhea. Acute kidney injury: suspect secondary to dehydration with ongoing diarrhea. Cr 3.01 on 09/30/16. -Resolved with IV hydration - Encourage by mouth intake - Avoid nephrotoxins HTN, controlled - Not on any antihypertensives, BP fairly well controlled. DVT Prophylaxis: heparin Discharge Planning D//c to SNF Yahir Higgins DO Oct 06, 2016 12:31
--- NOTE | 2016-10-06 12:32 | HHI.DCPOC ---
Discharge Care Plan Diagnosis: (1) Anemia (2) C. difficile colitis (3) CHERRI (acute kidney injury) (4) Dehydration Goals to Promote Your Health * To prevent worsening of your condition and complications * To maintain your health at the optimal level Directions to Meet Your Goals Take your medications as prescribed Follow your dietary instruction Follow activity as directed Keep your appointments as scheduled Take your immunizations and boosters as scheduled If your symptoms worsen call your PCP, if no PCP go to Urgent Care Center or Emergency Room Smoking is Dangerous to Your Health. Avoid second hand smoke Call the 24-hour hour crisis hotline for domestic abuse at Yahir Higgins DO Oct 06, 2016 12:32
--- NOTE | 2016-10-06 12:38 | HHI.DS ---
Discharge Summary Admission Date Oct 04, 2016 at 10:53 Discharge Date: Oct 06, 2016 Admitting Diagnosis CHERRI, Dehydration, Cdif (1) CHERRI (acute kidney injury) ICD Code: N17.9 (2) Acidosis ICD Code: E87.2 (3) Dehydration ICD Code: E86.0 (4) C. difficile colitis ICD Code: A04.7 Diagnosis: Principal Procedures None Brief History - From Admission Written by Leora Araujo, acting as scribe for Dr. Galicia on 10/02/16 at 13:43. Patient is a 76 year old female with primary medical history of diabetes, hypertension who came in from [facility] sent by the facility secondary to decline in mental status, dehydration, C. difficile. As per review of records, staff at [facility] sinus patient has been having rapid decline in mental status and physical abilities and Thursday. Diagnosed with C. difficile and was placed on Flagyl followed by an oral vancomycin, patient receive a dose of Rocephin. Her labs was drawn 2 days ago in the facility that showed acute kidney injury, midline catheter was placed and she was given some fluids but they have decided to send her to [place] for further evaluation. Patient seen and examined today. Reports she is doing well. Patient is only oriented to self, poor historian. As per staff, patient had "pudding consistency" stool today without any foul smell. Denies pain and discomfort. Denies SOB/ dyspnea. Denies chest pain, palpitations, headaches, dizziness. Denies fevers, chills, n/v/d. Denies dysuria. CBC/BMP: 10/05/16 0530 10/06/16 0602 Significant Findings Laboratory Tests Test 10/04/16 10/05/16 10/06/16 05:15 05:30 06:02 Chloride Level 116 MEQ/L 118 MEQ/L 122 MEQ/L (98-107) (98-107) (98-107) Carbon Dioxide Level 18.3 MEQ/L 15.5 MEQ/L (21.0-32.0) (21.0-32.0) Blood Urea Nitrogen 21 MG/DL (7-18) Estimat Glomerular Filtration 70 ML/MIN (>89) 80 ML/MIN (>89) 76 ML/MIN (>89) Rate Random Glucose 110 MG/DL 137 MG/DL 149 MG/DL (74-106) (74-106) (74-106) Calcium Level 7.5 MG/DL 7.2 MG/DL 7.5 MG/DL (8.5-10.1) (8.5-10.1) (8.5-10.1) Red Blood Count 3.51 MIL/MM3 (4.00-5.30) Hemoglobin 9.8 GM/DL (11.6-15.3) Hematocrit 29.9 % (35.0-46.0) Total Protein 4.3 GM/DL (6.4-8.2) Sodium Level 147 MEQ/L (136-145) Anion Gap 3 MEQ/L (5-15) PE at Discharge GENERAL: Pleasantly demented female in no apparent distress. CARDIOVASCULAR: Normal rate and regular rhythm without murmurs, gallops, or rubs. RESPIRATORY: Good respiratory efforts. Breath sounds equal and clear to auscultation bilaterally. GASTROINTESTINAL: Abdomen soft, non-tender, non-distended. Normal active bowel sounds MUSCULOSKELETAL: Extremities without cyanosis, or edema. NEURO: Alert & Oriented to self. Moves all ext x4 PSYCH: Calm. Pt update on day of discharge The patient was resting comfortably in bed. She had no acute complaints. She seemed interested in leaving the hospital. Discussed with nursing. No concerns. Hospital Course C. difficile Colitis The patient was on vancomycin 125 mg by mouth every 6 hours. That dose was increased to 250 mg by mouth every 6 hours. The patient's symptoms improved. She received IV fluids. She was continued on Lactinex. Her stools became more formed. The patient had no further symptoms. She will complete a 14 day course of vancomycin 250 mg by mouth every 6 hours. BRBPR 7 RN reported streaks of bright red blood mixed with brown diarrhea stool. No further evidence of bleeding as her diarrhea improved. The patient will have a repeat CBC in 3-5 days and follow up with her primary care doctor. She will also be referred to gastroenterology. DM2 She will continue home medication of Levemir 25 units daily. She received an insulin sliding scale. Acute kidney injury Resolved with IV hydration. Encourage by mouth intake. Avoid nephrotoxins. HTN Not on any antihypertensives, BP fairly well controlled. Follow up with PCP. Pt Condition on Discharge: Stable Discharge Disposition: Discharge to SNF Discharge Time: > 30 minutes Discharge Instructions DIET: Follow Instructions for: Heart Healthy Diet Activities you can perform: Weight Bearing as Emmy Follow up Referrals: Gastroenterology - 1 Week PCP Follow-up - 1 Week New Orders: CBC NO DIFF - 3-5 Days New Medications: Vancomycin Inj (Vancomycin Inj) 500 Mg Inj 250 MG PO Q6HR C diff #40 INJECTION Continued Medications: Acetaminophen (Acetaminophen) 325 Mg Capsule 650 MG PO Q6 PRN PAIN SCALE 4 TO 10 Ascorbic Acid (Vitamin C) 250 Mg Tab 500 MG PO BID Nutritional Supplement Ref [address] (Aspirin 81) 81 Mg Tabdr 81 MG PO DAILY Ref 0 TAB Atorvastatin (Atorvastatin) 20 Mg Tab 20 MG PO HS Cholesterol Management #30 Ref 0 TAB Capsaicin/Menthol (Salonpas Gel-Patch Hot) 1 Each Adh..patch [address] AT 6 AM OFF AT 2 PM Cholecalciferol (Vitamin D3) 5,000 Unit Cap 5000 UNITS PO DAILY Nutritional Supplement #1 Ref 0 BOTTLE Clopidogrel (Plavix) 75 Mg Tab 75 MG PO DAILY Blood Clot Prevention #30 Ref 0 TAB Donepezil (Donepezil) 10 Mg Tab 10 MG PO HS Dementia #30 Ref 0 TAB Fenofibrate (Fenofibrate) 145 Mg Tab 145 MG PO DAILY #30 Ref [address] (Ferrous Sulfate DR) 325 Mg Tabdr 1 TAB PO BID Insulin Detemir Inj (Levemir Inj) 1,000 unit/ 10 ML Vial 25 UNITS SQ DAILY BED TIME' Do not mix with any other Insulin. Blood Sugar Management Ref 0 VIAL Loratadine (Bulk) (Loratadine) 1 Pow Pow 10 MG PO DAILY Ondansetron (Zofran) 4 Mg Tab 4 MG PO Q8HR PRN NAUSEA OR VOMITING Ref 0 TAB Ranitidine HCl (Zantac 75) 75 Mg Tablet 75 MG PO BID Saccharomyces Boulardii (Probiotic) 250 Mg Cap 250 MG PO DAILY Nutritional Supplement Days 14 Ref 0 CAP Discontinued Medications: Insulin Detemir Inj (Levemir Inj) 1,000 unit/ 10 ML Vial 16 UNITS SQ DAILY@0600 Do not mix with any other Insulin. Blood Sugar Management Ref 0 VIAL Insulin Lispro (Human) Inj (Humalog Cartridge Inj) 300 Unit/3 Ml Soln 7 UNITS SQ ACHS SLIDING SCALE #1 BOX Vancomycin (Vancomycin) 125 Mg Cap 125 MG PO Q6HR Infection Days 10 Ref 0 CAP Yahir Higgins DO Oct 06, 2016 12:38
[2016-10-06 16:00] VITALS: BP 148/105; PULSE 76; RESP 15; TEMP 95.8; O2SAT 95
== END 2016-10-06 17:23 | DRG 372 ==
LOC: NEDAMB 17:08 → NEDA 22:31 → NEPHCDU 10-02 00:28 → OBSVTOIN 10-04 10:53 → N07A 10-04 21:22
PROVIDERS: ADMIT Hospitalist; ATTEND Hospitalist
DX: A04.7 Enterocolitis due to Clostridium difficile (principal); N17.9 Acute kidney failure, unspecified; E87.2 Acidosis; E86.0 Dehydration; E11.9 Type 2 diabetes mellitus without complications; I10 Essential (primary) hypertension; F03.90 Unspecified dementia, unspecified severity, without behavioral disturbance, psychotic disturbance, mood disturbance, and anxiety; Z79.4 Long term (current) use of insulin; Z89.612 Acquired absence of left leg above knee
CPT/HCPCS: 80048; 80053; 81001; 82948; 84155; 85007; 85025; 85027; 87086; 99285; G0378; G8987-GP; G8988-GP; J1815; J7030